=== PATIENT | female | born 1980 | race Caucasian/White ===

== ENCOUNTER 2016-10-24 16:34 | Emergency (ER) | payer SELFPAY ==
[~2016-10-24] VITALS: Ht 165.1 cm; Wt 60.0 kg
[~2016-10-24 16:34] MED LIST: XANA1TAB2 PO
[2016-10-24 16:36] VITALS: BP 114/67; PULSE 88; RESP 20; TEMP 98.7; O2SAT 98
--- NOTE | 2016-10-24 17:25 | PD ---
HPI Chief Complaint: Injury Time Seen by Provider: 17:18 Travel History International Travel<30 days: No Contact w/Intl Traveler<30days: No Traveled to known affect area: No History of Present Illness HPI 36-year-old white female presents to emergency department for evaluation of right foot and ankle pain after a [place] fall [place] the beach. She states that she was exiting the beach when she slipped with her flip-flops on the concrete stairs. She states that she had struck her right great toe and injured her ankle. She states that she does not recall hitting her head. She denies any neck or back pain. She does complain of a headache. She is up-to-date with immunizations. She states that she takes 2 mg of Xanax twice daily. She denied alcohol. Patient is requesting something for pain. She denies any numbness, tingling or focal weakness. Pain is moderate. Worse with attempting to weight-bear or move her foot. No alleviating factors. PFSH Past Medical History Narrative Medical Hepatitis C, DJD, Anxiety, depression, history of PSA Hx Anticoagulant Therapy: No Arthritis: Yes Blood Disorders: No Anxiety: Yes Cardiovascular Problems: No Chemotherapy: No Cerebrovascular Accident: No Diabetes: No Diminished Hearing: No Endocrine: No Genitourinary: No Hepatitis: Yes (c) Immune Disorder: No Musculoskeletal: No Psychiatric: Yes (Hx of PSA) Respiratory: No Immunizations Current: Yes Seizures: Yes Tetanus Vaccination: < 5 Years Influenza Vaccination: No ?: Not Tubal Ligation: Yes Past Surgical History Narrative Surgical , breast augmentation Section: Yes Hysterectomy: No Other Surgery: Yes (Breast augmentation) Social History Alcohol Use: No (denies) Tobacco Use: Yes (1/2 ppd) Substance Use: No (Denies) Allergies-Medications (Allergen,Severity, Reaction): Coded Allergies: No Known Allergies (Verified , 05/27/16) Reported Meds & Prescriptions Reported Meds & Active Scripts Active Diclofenac Sodium DR (Diclofenac Sodium) 75 Mg Tabdr 75 Mg PO BID Reported Xanax (Alprazolam) 1 Mg Tab 2 Mg PO BID PRN Physical Exam Narrative GENERAL: Well-developed, well-nourished in no apparent distress. Nontoxic appearing. The patient has somewhat slurred and slow speech. She appears under the influence of drugs and/or alcohol. HEAD: Normocephalic, atraumatic. EYES: Extraocular motions intact. No scleral icterus. No injection or drainage. Pupils somewhat constricted. ENT: Nose clear. Throat without erythema, tonsillar hypertrophy or exudate. Uvula midline. Airway patent. NECK: Trachea midline. Supple, nontender, moves head freely. No central bony tenderness or spasm. CARDIOVASCULAR: Regular rate and rhythm without murmurs, gallops, or rubs. RESPIRATORY: Clear to auscultation. Breath sounds equal bilaterally. No wheezes , rales, or rhonchi. GASTROINTESTINAL: Abdomen soft, non-tender, nondistended. No hepato-splenomegaly , or palpable masses. No guarding. EXTREMITIES: No clubbing, cyanosis, or edema. Examination of the right lower extremity reveals a abrasion to the medial aspect of the great toe. She complains of tenderness in the great toe as well as to the lateral ankle. There is tenderness to the anterior talar fibular ligament region. Mild discomfort over the lateral malleolus. No pain in the medial malleolus. No pain in the heel or Achilles. She has intact sensation with good dorsalis pedis pulse. No pain in the knee or hip. Examination the left lower extremity reveals no localizing bony tenderness in the hip. She is able to internally and external rotate as well as hip flexion and extension. No pain in the knee, ankle or foot. The upper extremities are unremarkable. BACK: Nontender without deformity. No flank tenderness. NEUROLOGICAL: Awake, alert and oriented x 3 .Cranial nerves grossly intact. Motor and sensory grossly within normal limits. Normal speech. Data Data Last Documented VS Vital Signs Date Time Temp Pulse Resp B/P Pulse Ox O2 Delivery O2 Flow Rate FiO2 10/24/16 16:36 98.7 88 20 114/67 98 Room Air Orders Ankle, Complete ([id number]) (10/24/16 17:16) Foot, Limited (2vws) (10/24/16 17:16) Ice/Cold Pack (10/24/16 17:16) Splint Or Brace Apply/Monitor (10/24/16 17:16) Crutches (10/24/16 17:16) Ketorolac Inj (Toradol Inj) (10/24/16 17:30) MDM Medical Decision Making Medical Screen Exam Complete: Yes Emergency Medical Condition: Yes Medical Record Reviewed: Yes Interpretation(s) Right ankle: Negative for Acute fracture. Right foot: Negative for acute fracture. Differential Diagnosis MDM: High Differential diagnoses: Fracture, sprain, strain, dislocation, contusion, neurovascular injury Narrative Course This is a 36-year-old white female who slipped and fell leaving the beach today. She has superficial abrasions to her great toe on the right foot. She complains of pain in the foot and ankle. Her exam does not reveal any significant injury. The patient is complaining of pain is requesting pain medication. She or he appears to be under the influence of drugs and/or alcohol. She denies alcohol. X-rays of the right foot and ankle are negative. Patient is given Toradol 60 mg IM. Her abrasion is cleansed and dressed. She is given Aydin wrap and crutches. This is right foot and ankle strain Diagnosis Primary Impression: Strain of right ankle and foot Qualified Code: S96.911A - Strain of right ankle and foot, initial encounter Patient Instructions: General Instructions Additional Instructions: Rest. Elevation. Ice packs for the next 3 days. Aydin wrap and crutches. Daily wound care with soap, water, Neosporin. No weight-bearing and then progress to weight-bearing as tolerated. Medications as directed Follow-up with an orthopedist or your doctor in one week. Return to the ER if any problems Med/Other Pt SpecificInfo: Prescription(s) given Scripts Diclofenac Sodium DR 75 Mg Tabdr75 Mg PO BID #20 TAB Prov:Rodrigo Ham MD 10/24/16 Disposition: 01 DISCHARGE HOME Condition: Stable Alfie Dooley October 24, 2016 17:25
[2016-10-24] MEDS ORDERED: DICL75TA PO (17:27)
[2016-10-24] MEDS ORDERED: KETOROLAC TROMETHAMINE 60 MG/2 ML (IM) VIAL IM ONE (17:30)
--- NOTE | 2016-10-24 18:02 | RADRPT ---
EXAM DATE/TIME: 10/24/2016 17:40 [facility] COMPARISON: No previous studies available for comparison. INDICATIONS : Right ankle pain after fall down stairs. MEDICAL HISTORY : None. SURGICAL HISTORY : None. ENCOUNTER: Initial ACUITY: 1 day PAIN SCORE: 9/10 LOCATION: Right medial ankle. FINDINGS: Three view exam was performed of the right ankle. The bony structures are in normal alignment. No e vidence of fracture, dislocation, or soft tissue swelling. The ankle mortise is intact. No radiopaq ue foreign bodies are seen. Bony mineralization is normal. CONCLUSION: Normal examination for a patient of this age. Alfie Duran MD on October 24, 2016 at 18:00 Board Certified Radiologist. This report was verified electronically.
--- NOTE | 2016-10-24 18:04 | RADRPT ---
EXAM DATE/TIME: 10/24/2016 17:39 [facility] COMPARISON: No previous studies available for comparison. INDICATIONS : Right foot pain after fall down stairs. MEDICAL HISTORY : None. SURGICAL HISTORY : None. ENCOUNTER: Initial ACUITY: 1 day PAIN SCORE: 9/10 LOCATION: Right medial foot. FINDINGS: Prominent hallux valgus is noted. There is no evidence of fracture or dislocation. Mineralization is normal. CONCLUSION: No acute bony injury Enrike Joshi MD on October 24, 2016 at 18:01 Board Certified Radiologist. This report was verified electronically.
== END 2016-10-24 18:24 | disposition home or self-care (01) ==
LOC: NEPK 16:34
DX: S96.911A Strain of unspecified muscle and tendon at ankle and foot level, right foot, initial encounter (principal); S90.411A Abrasion, right great toe, initial encounter; R51 Headache; F17.200 Nicotine dependence, unspecified, uncomplicated; Z86.19 Personal history of other infectious and parasitic diseases; Z86.59 Personal history of other mental and behavioral disorders; Z87.39 Personal history of other diseases of the musculoskeletal system and connective tissue; Z86.69 Personal history of other diseases of the nervous system and sense organs; W01.0XXA Fall on same level from slipping, tripping and stumbling without subsequent striking against object, initial encounter; Y92.832 Beach as the place of occurrence of the external cause
CPT/HCPCS: 73610; 73620; 96372; 99284; E0113; J1885

== ENCOUNTER 2016-12-23 01:52 | Emergency (ER) | payer SELFPAY ==
[~2016-12-23] VITALS: Ht 162.6 cm; Wt 69.5 kg
[~2016-12-23 01:52] MED LIST changes: +DICL75TA PO
[2016-12-23 02:03] VITALS: BP 105/57; PULSE 78; RESP 18; TEMP 98; O2SAT 99
[2016-12-23 02:10] VITALS: BP 105/57; PULSE 78; RESP 18; TEMP 98
[2016-12-23] MEDS ORDERED: PENI500T PO (04:13)
[2016-12-23] MEDS ORDERED: IBUP800T23 PO (04:13)
[2016-12-23] MEDS ORDERED: PENICILLIN V POTASSIUM 500 MG TAB PO ONE (04:15)
[2016-12-23] MEDS ORDERED: KETOROLAC TROMETHAMINE 60 MG/2 ML (IM) VIAL IM ONE (04:15)
--- NOTE | 2016-12-23 04:17 | PD ---
HPI Chief Complaint: Oral / Dental Pain or Problem Time Seen by Provider: 04:09 Travel History International Travel<30 days: No Contact w/Intl Traveler<30days: No Traveled to known affect area: No History of Present Illness HPI 36-year-old female presents to the emergency department for dental pain times one week. Patient states that she was told that she needs a root canal. Patient states she saw dentist 1 year ago and they gave her this information. Patient hasn't followed up with a dentist subsequently. Patient reportedly took 400 mg of ibuprofen earlier in the evening and states [id number] Anbesol is providing no relief. No reported fever chills. Patient is not diabetic. Patient rates her pain 9/10 in intensity. Chewing and eating increases pain unable to identify alleviating factors. PFSH Past Medical History Narrative Medical Arthritis anxiety prior polysubstance abuse; nursing notes reviewed Hx Anticoagulant Therapy: No Arthritis: Yes Blood Disorders: No Anxiety: Yes Cardiovascular Problems: No Chemotherapy: No Cerebrovascular Accident: No Diabetes: No Diminished Hearing: No Endocrine: No Genitourinary: No Hepatitis: Yes (c) Immune Disorder: No Musculoskeletal: No Psychiatric: Yes (Hx of PSA) Respiratory: No Immunizations Current: Yes Seizures: Yes ?: Not LMP: 12/01/2016 Tubal Ligation: Yes Past Surgical History Section: Yes Hysterectomy: No Other Surgery: Yes (Breast augmentation) Social History Alcohol Use: No (denies) Tobacco Use: Yes (1/2 ppd) Substance Use: No (Denies) Allergies-Medications (Allergen,Severity, Reaction): Coded Allergies: No Known Allergies (Verified , 05/27/16) Reported Meds & Prescriptions Reported Meds & Active Scripts Active Ibuprofen 800 Mg Tab 800 Mg PO Q8H PRN Penicillin V Potassium 500 Mg Tab 500 Mg PO Q6H [address] (Diclofenac Sodium) 75 Mg Tabdr 75 Mg PO BID Reported Xanax (Alprazolam) 1 Mg Tab 2 Mg PO BID PRN Review of Systems Except as stated in HPI: all other systems reviewed are Neg Physical Exam Narrative GENERAL: Well-developed well-nourished female in no acute distress no respiratory distress SKIN: Warm and dry. HEAD: Normocephalic. EYES: No scleral icterus. No injection or drainage. ENT: Mucous membranes moist multiple dental caries with several missing teeth no evidence of malocclusion; gingival edema near the markedly decayed #19 tooth NECK: Supple, trachea midline. No JVD or lymphadenopathy. Data Data Last Documented VS Vital Signs Date Time Temp Pulse Resp B/P Pulse Ox O2 Delivery O2 Flow Rate FiO2 12/23/16 04:20 65 16 95/55 95 12/23/16 02:10 98.0 Orders Ketorolac Inj (Toradol Inj) (12/23/16 04:15) Penicillin V Potassium (Veetids) (12/23/16 04:15) MDM Medical Decision Making Medical Screen Exam Complete: Yes Emergency Medical Condition: Yes Medical Record Reviewed: Yes Differential Diagnosis Dentalgia, dental abscess, gingivitis, periodontal disease Narrative Course Patient given first dose of antibiotic and injection of Toradol; patient provided paperwork for many resources for dentist follow-up; patient provided prescription for outpatient ibuprofen and Penicillin VK Diagnosis Primary Impression: Dentalgia Referrals: Dentist call for appointment Additional Instructions: Follow-up with dentist Complete course of antibiotic as prescribed Take weight-based/high-dose ibuprofen per prescription as needed as often as every 8 hours however this may not be taken any more frequently than every 8 hours May take acetaminophen/Tylenol every 4-6 hours as needed for minor pain or for fever 100.4F or greater Return to the emergency department for any concerns or change in condition Med/Other Pt SpecificInfo: Prescription(s) given Scripts Ibuprofen 800 Mg [id number] Mg PO Q8H PRN (PAIN GREATER THAN 5) #10 TAB Ref 0 Prov:Ryanne Gutierrez MD 12/23/16 Penicillin V Potassium 500 Mg [id number] Mg PO Q6H 7 Days Ref 0 Prov:Ryanne Gutierrez MD 12/23/16 Disposition: 01 DISCHARGE HOME Condition: Stable Ryanne Gutierrez MD Dec 23, 2016 04:16
[2016-12-23 04:20] VITALS: BP 95/55
== END 2016-12-23 04:30 | disposition home or self-care (01) ==
LOC: PHED 01:52
DX: K08.89 Other specified disorders of teeth and supporting structures (principal); F17.200 Nicotine dependence, unspecified, uncomplicated
CPT/HCPCS: 96372; 99284; J1885

== ENCOUNTER 2017-08-04 14:48 | Emergency (ER) | payer MEDICAID ==
[~2017-08-04] VITALS: Ht 165.1 cm; Wt 64.5 kg
[~2017-08-04 14:48] MED LIST changes: +IBUP1TAB7 PO; +PENI500T PO
[2017-08-04 15:02] VITALS: BP 120/56; PULSE 77; RESP 16; TEMP 97.6; O2SAT 99
[2017-08-04] MEDS ORDERED: CYCL10TA PO (16:07)
--- NOTE | 2017-08-04 16:31 | PD ---
HPI Chief Complaint: Laceration/Skin Injury Time Seen by Provider: 16:02 Travel History International Travel<30 days: No Contact w/Intl Traveler<30days: No Traveled to known affect area: No History of Present Illness HPI 37-year-old female that presents to the ED for evaluation of head injury on Friday. Per patient yesterday tripped and fell and cut the top of her head. She's been having pain since as well as some nausea. She suffered a cut to the head and her friend has been washing it and keeping it clean. She states that she continues to have pain which is reported to her evaluation here today. She states that she is up-to-date with her tetanus booster. She states that the pain is 6 out of 10. Mainly to the head. It is any urinary or bowel movement issues. No chest pain or shortness of breath. No back or neck pain. No arm pain. Denies losing consciousness. No blood thinner use. No other medical issues report at this time. PFSH Past Medical History Hx Anticoagulant Therapy: No Arthritis: Yes Blood Disorders: No Anxiety: Yes Cardiovascular Problems: No Chemotherapy: No Cerebrovascular Accident: No Diabetes: No Diminished Hearing: No Endocrine: No Genitourinary: No Hepatitis: Yes (c) Immune Disorder: No Musculoskeletal: No Psychiatric: Yes (Hx of PSA) Respiratory: No Immunizations Current: Yes Seizures: Yes Tetanus Vaccination: < 5 Years Influenza Vaccination: No ?: Not Tubal Ligation: Yes Past Surgical History Section: Yes Hysterectomy: No Other Surgery: Yes (Breast augmentation) Social History Alcohol Use: No (denies) Tobacco Use: Yes (1/2 ppd) Substance Use: No (Denies) Allergies-Medications (Allergen,Severity, Reaction): Coded Allergies: No Known Allergies (Verified Adverse Reaction, Unknown, 08/04/17) Reported Meds & Prescriptions Reported Meds & Active Scripts Active Reported Flexeril (Cyclobenzaprine HCl) 10 Mg Tab 10 Mg PO TID Xanax (Alprazolam) 1 Mg Tab 2 Mg PO BID PRN Review of Systems Except as stated in HPI: all other systems reviewed are Neg Physical Exam Narrative GENERAL: SKIN: Warm and dry. HEAD: Atraumatic. Normocephalic. Patient has a superficial well-healing laceration to the mid scalp on the left side. Some old blood noted. Slightly swollen but not erythematous. About 4 cm in length EYES: Pupils equal and round 4 mm reactive to light and accommodation. No scleral icterus. No injection or drainage. ENT: No nasal bleeding or discharge. Mucous membranes pink and moist. Tongue is midline. No uvula deviation. NECK: Trachea midline. No JVD. CARDIOVASCULAR: Regular rate and rhythm. No murmurs, S3, S4. RESPIRATORY: No accessory muscle use. Clear to auscultation. Breath sounds equal bilaterally. GASTROINTESTINAL: Abdomen soft, non-tender, nondistended. Hepatic and splenic margins not palpable. MUSCULOSKELETAL: Extremities without clubbing, cyanosis, or edema. No obvious deformities. Full range of motion of the upper and lower extremities bilaterally. 2+ pulses bilaterally. NEUROLOGICAL: Awake and alert. No obvious cranial nerve deficits. Motor grossly within normal limits. Five out of 5 muscle strength in the arms and legs. Normal speech. PSYCHIATRIC: Appropriate mood and affect; insight and judgment normal. Data Data Last Documented VS Vital Signs Date Time Temp Pulse Resp B/P (MAP) Pulse Ox O2 Delivery O2 Flow Rate FiO2 08/04/17 15:02 97.6 77 16 120/56 (77) [address] Brain W/O Iv Contrast(Rout) (08/04/17 16:07) MDM Medical Decision Making Medical Screen Exam Complete: Yes Emergency Medical Condition: Yes Medical Record Reviewed: Yes Interpretation(s) CT of the head was negative for acute disease. Differential Diagnosis Laceration versus head injury versus contusion versus ICH Narrative Course 37-year-old female that presents to the ED for evaluation of head injury. Patient was properly examined and was found to have signs and symptoms consistent with a healing laceration. CT was ordered as patient is to have headaches and some nausea from the injury. CT was negative for this. Patient is up-to-date with tetanus. The stomach recommendation is to trial of antibiotics as well as pain medication. Unfortunately cut this morning 24 hours old and has not recommend any suturing or suellen at this time. He does however appear to be healing well with no signs of infection to some soft tissue swelling which is likely from the injury itself. Patient was told to apply ice to the area. Wash hair as needed. See ED worsening symptoms. Follow with PCP. Diagnosis Primary Impression: Head injury, acute Qualified Codes: S09.90XA - Unspecified injury of head, initial encounter Patient Instructions: General Instructions Additional Instructions: Take medications as prescribed. Follow-up with PCP. See ED for any worsening symptoms. Do not drink or drive while taking pain medication. Apply ice or heat as needed for pain Med/Other Pt SpecificInfo: Prescription(s) given, Wound Care Disposition: 01 DISCHARGE HOME Condition: Catracho Samano Aug 04, 2017 16:31
[2017-08-04] MEDS ORDERED: ACETAMINOPHEN/HYDROcodone 325 MG/5 MG TAB PO ONE (17:15)
[2017-08-04] MEDS ORDERED: HYDR-3516 PO (17:56)
[2017-08-04] MEDS ORDERED: BACT800T5 PO (17:56)
[2017-08-04] MEDS ORDERED: DICL75TA PO (17:56)
[2017-08-04] MEDS ORDERED: BACI500O9 TOPICAL (17:56)
--- NOTE | 2017-08-04 18:18 | RADRPT ---
EXAM DATE/TIME: 08/04/2017 17:32 [facility] COMPARISON: CT BRAIN W/O CONTRAST, December 14, 2014, 20:32. INDICATIONS : Trauma, hit top of head. Laceration to top of head. RADIATION DOSE: 60.89 CTDIvol (mGy) MEDICAL HISTORY : Aneurysm, intracranial. SURGICAL HISTORY : None. ENCOUNTER: Initial ACUITY: 1 day PAIN SCALE: 5/10 LOCATION: cranial TECHNIQUE: Multiple contiguous axial images were obtained of the head. Using automated exposure control and adj ustment of the mA and/or kV according to patient size, radiation dose was kept as low as reasonably a chievable to obtain optimal diagnostic quality images. DICOM format image data is available electro nically for review and comparison. FINDINGS: CEREBRUM: The ventricles are normal for age. No evidence of midline shift, mass lesion, hemorrhage or acute in farction. No extra-axial fluid collections are seen. POSTERIOR FOSSA: The cerebellum and brainstem are intact. The 4th ventricle is midline. The cerebellopontine angle i s unremarkable. EXTRACRANIAL: The visualized portion of the orbits is intact. SKULL: The calvaria is intact. No evidence of skull fracture. CONCLUSION: Negative noncontrast CT of the brain. Renan Cruz MD on August 04, 2017 at 18:15 Board Certified Radiologist. This report was verified electronically.
== END 2017-08-04 18:29 | disposition home or self-care (01) ==
LOC: PHEFT 14:48
DX: S09.90XA Unspecified injury of head, initial encounter (principal); R11.0 Nausea; M19.90 Unspecified osteoarthritis, unspecified site; F41.9 Anxiety disorder, unspecified; R56.9 Unspecified convulsions; F17.200 Nicotine dependence, unspecified, uncomplicated; W01.0XXA Fall on same level from slipping, tripping and stumbling without subsequent striking against object, initial encounter; Z86.19 Personal history of other infectious and parasitic diseases
CPT/HCPCS: 70450; 99283